=== PATIENT | male | born 1995 | race Caucasian/White ===

== ENCOUNTER 2019-06-17 11:26 | Emergency (ER) | payer OTHER ==
--- NOTE | 2019-06-17 13:01 | EDM.PDOCBH ---
ED HPI GENERAL MEDICAL PROBLEM - General Chief Complaint: Behavioral/Psych Stated Complaint: EVAL Time Seen by Provider: 06/17/19 12:00 Source of Information: Reports: Patient, Family History Limitations: Reports: No Limitations - History of Present Illness INITIAL COMMENTS - FREE TEXT/NARRATIVE: 23-year-old male dropped off by his parents to be evaluated for depression and anger issues. This is a longstanding problem, he had 2 appointments for psychotherapy earlier this year but he missed the third and was unable to schedule any further appointments. He feels like he could be but has no plans on self-harm. He would not care if he . He is always avoided any medication for treatment because he did not want to "get addicted". According to his parents he has been smoking marijuana. He does have full-time employment. They had a big argument today so the parents brought him in to be evaluated, he has now calmed down but still feels hopeless. Onset: Unknown/Unsure (Issues have been ongoing for years) Associated Symptoms: Reports: No Other Symptoms (He has no physical symptoms, he feels healthy) - Related Data Allergies Allergy/AdvReac Type Severity Reaction Status Date / Time No Known Allergies Allergy Verified 06/17/19 11:44 Home Meds: Home Meds NK [No Known Home Meds] 06/17/19 [History] Past Medical History Respiratory History: Reports: Asthma Psychiatric History: Reports: Anxiety, Panic Attack, Other (See Below) Other Psychiatric History: SAD. Anger management - Past Surgical History HEENT Surgical History: Reports: Oral Surgery Social & Family History - Tobacco Use Smoking Status *Q: Current Every Day Smoker Years of Tobacco use: 5 Packs/Tins Daily: 0.5 - Caffeine Use Caffeine Use: Reports: Coffee, Soda - Recreational Drug Use Recreational Drug Type: Reports: Marijuana/Hashish Recreational Drug Use Frequency: Rarely ED ROS GENERAL - Review of Systems Review Of Systems: See Below Constitutional: Denies: Fever, Chills Respiratory: Reports: Cough (Patient has a slight chronic smoker's cough, no worse today than usual) Cardiovascular: Denies: Chest Pain GI/Abdominal: Denies: Abdominal Pain, Nausea, Vomiting Skin: Reports: No Symptoms Neurological: Reports: No Symptoms. Denies: Headache Psychiatric: Reports: Anxiety, Depression ED EXAM, BEHAVIORAL HEALTH - Physical Exam Exam: See Below Exam Limited By: No Limitations General Appearance: Alert, No Apparent Distress Eye Exam: Bilateral Eye: Normal Inspection Head: Atraumatic Respiratory/Chest: No Respiratory Distress, Lungs Clear Cardiovascular: Regular Rate, Rhythm Extremities: Normal Inspection Neurological: Alert, Oriented x 3 Psychiatric: Normal Affect. No: Depressed Mood, Flat Affect, Incoherent, Restless, Tearful Skin Exam: Warm, Dry COURSE, BEHAVIORAL HEALTH COMP - Course Vital Signs: Last Vital Signs Temp 94.4 F L 06/17/19 11:49 Pulse 82 06/17/19 11:49 Resp 16 06/17/19 11:49 BP 144/86 H 06/17/19 11:49 Pulse Ox 100 06/17/19 11:49 Re-Assessment/Re-Exam: Patient is very cooperative and straightforward, does feel hopeless, depressed and anxious but has no intention of harming himself. After a long discussion with the patient and his parents, he did agree to try a medication while he tries to reestablish outpatient care. He will also try to establish a regular medical provider to refill his medication if it is beneficial. He was started on Zoloft 25 mg daily for 4 days, then 50 mg daily for 30 days. Departure - Departure Time of Disposition: 13:17 Disposition: Home, Self-Care 01 Clinical Impression: Anxiety - Discharge Information Instructions: Living With Anxiety Referrals: PCP,None [Primary Care Provider] - Forms: ED Department Discharge Care Plan Goals: Take medication as prescribed, and consider calling [facility] to discuss future evaluations or appointments. Establish a primary care provider within the next month to monitor your progress. Return anytime if worsening or concerns. Sepsis Event Note - Evaluation Sepsis Screening Result: No Definite Risk - Focused Exam Vital Signs: Vital Signs Temp Pulse Resp BP Pulse Ox 06/17/19 11:49 94.4 F L 82 16 144/86 H 100 06/17/19 11:44 94.4 F L 82 16 144/86 H 100 Date Exam was Performed: 06/17/19 Time Exam was Performed: 14:29
== END 2019-06-17 13:18 | disposition home or self-care (01) ==
LOC: JP.ED 11:26
DX: F41.9 Anxiety disorder, unspecified (principal); F17.210 Nicotine dependence, cigarettes, uncomplicated
CPT/HCPCS: 99284